=== PATIENT | female | born 1970 | race Caucasian/White ===

== ENCOUNTER → 2018-01-29 08:24 | Outpatient (CLI) | payer BC, SELFPAY ==
--- NOTE | 2018-01-29 08:28 | MM_ITS ---
MM Dig screening mamm BI w/CAD CAD Screening COMPARISON: Digital left mammogram 02/13/2017 and digital mammograms with CAD 07/17/2016 INDICATION: There is no personal or family history of breast cancer TECHNIQUE: Standard CC and MLO images were obtained. R2 CAD reviewed. FINDINGS: Moderate diffuse fibroglandular densities are seen throughout both breast and the findings are bilateral and symmetrical. There is no suspicious lesion and there are no suspicious microcalcifications. IMPRESSION: Moderate diffuse breast density with no suspicious lesion seen BI-RADS Category: 1 Negative RECOMMENDED FOLLOW-UP: 1YR - 1 YEAR FOLLOW-UP (A letter has been sent to the patient regarding results of the study.)
== END ==
PROVIDERS: PCP Family Medicine; Visit Provider Nurse Practitioner Obstetrics & Gynecology
DX: Z12.31 Encounter for screening mammogram for malignant neoplasm of breast (principal)
CPT/HCPCS: 77067

== ENCOUNTER → 2018-02-05 10:40 | Outpatient (CLI) | payer BC, SELFPAY ==
[2018-02-05 11:48] LABS: Free T4 (Free Thyroxine) 1.37 ng/dl (0.76-1.46); Thyroid Stimulating Hormone 5.59 uIU/ml (0.358-3.740)
== END ==
PROVIDERS: Visit Provider Otolaryngology
DX: E03.9 Hypothyroidism, unspecified (principal)
CPT/HCPCS: 36415; 84439; 84443

== ENCOUNTER → 2019-02-05 14:04 | Outpatient (CLI) | payer BC, SELFPAY ==
[2019-02-05 14:58] LABS: Free T4 (Free Thyroxine) 1.47 ng/dl (0.76-1.46); Thyroid Stimulating Hormone 1.47 uIU/ml (0.358-3.740)
== END ==
PROVIDERS: Visit Provider Otolaryngology
DX: E03.9 Hypothyroidism, unspecified (principal)
CPT/HCPCS: 36415; 84439; 84443

== ENCOUNTER → 2019-03-28 08:27 | Outpatient (CLI) | payer BC, SELFPAY ==
[2019-03-28 08:36] LABS: Basophils # 0.1 K/mm3 (0-0.2); Basophils % 0.8 % (0.1-2.0); Eosinophils # 0.2 K/mm3 (0.0-0.4); Eosinophils % 2.2 % (0.1-12.0); Lymphocytes # 2.4 K/mm3 (0.7-4.5); Lymphocytes % 34.4 % (10-50); Mean Corpuscular HGB Conc 32.6 g/dL (31.8-35.4); Mean Corpuscular Hemoglobin 29.3 pg (27.0-31.2); Mean Corpuscular Volume 89.8 fl (81-99); Mean Platelet Volume 6.8 fl (7.4-10.4); Monocytes # 0.3 K/mm3 (0.1-1.0); Monocytes % 4.5 % (1.7-9.3); Neutrophils # 4.1 K/mm3 (1.8-7.8); Neutrophils % 58.1 % (37.0-80.0); Platelet Count 435 K/mm3 (142-424); Red Blood Count 5.12 M/mm3 (4.20-5.40); Red Cell Distribution Width 13.1 % (11.5-17.5); White Blood Count 7.1 K/mm3 (4.8-10.8)
[2019-03-28 11:31] LABS: Alanine Aminotransferase 39 U/L (12-78); Albumin Level 3.2 gm/dL (3.4-5.0); Alkaline Phosphatase 70 U/L (46-116); Anion Gap 11.5 mEq/L (5-15); Aspartate Amino Transferase 32 U/L (15-37); Bilirubin,Total 0.4 mg/dL (0.2-1.0); Blood Urea Nitrogen 12 mg/dL (7-18); Calcium 8.8 mg/dL (8.5-10.1); Carbon Dioxide 29 mmol/L (21.0-32.0); Chloride 102 mmol/L (98-107); Chol/HDL Ratio 3.2 (1-3.5); Cholesterol 121 mg/dL (140-200); Creatinine,Serum 0.56 mg/dL (0.55-1.02); Estimated Glomerular Filt Rate 116 ml/min (>60); GFR (African American) 140 ML/MIN (>60); Globulin 3.3 gm/dl (1.3-3.2); Glucose 78 mg/dL (74-106); HDL Cholesterol 38 mg/dL (29-89); LDL Cholesterol 72 mg/dL (0-130); Potassium 4.5 mmoL/L (3.5-5.1); Sodium 138 mmol/L (136-145); Total Protein,Serum 6.5 gm/dL (6.4-8.2); Triglycerides 54 mg/dL (30-200); VLDL Cholesterol 11 mg/dL (0-40)
== END ==
PROVIDERS: Visit Provider Nurse Practitioner Obstetrics & Gynecology
DX: Z01.419 Encounter for gynecological examination (general) (routine) without abnormal findings (principal)
CPT/HCPCS: 36415; 80053; 80061; 85025

== ENCOUNTER → 2020-01-27 11:37 | Outpatient (CLI) | payer BC, SELFPAY ==
[2020-01-27 14:50] LABS: Free T4 (Free Thyroxine) 1.73 ng/dl (0.78-2.19)
[2020-01-27 15:04] LABS: Thyroid Stimulating Hormone 0.02 uIU/mL (0.465-4.68)
== END ==
PROVIDERS: Visit Provider Otolaryngology
DX: E03.9 Hypothyroidism, unspecified (principal)
CPT/HCPCS: 36415; 84439; 84443

== ENCOUNTER → 2020-07-21 08:55 | Outpatient (CLI) | payer BC, SELFPAY ==
--- NOTE | 2020-07-21 08:59 | MM_ITS ---
PROCEDURE: MM DIG SCREENING MAMM BI W/CAD Digital Breast Tomosynthesis Included CLINICAL INDICATION: screening xmg There is no personal or family history of breast cancer. The patient currently is on control pills. COMPARISON: MG DMSB DIG MAMM-SCREEN KADY from 07/17/2016 MG DMDXUAVL DIG MAMM-DX UNI A/VWS-LT W/CAD from 02/13/2017 MG SCBI MM Dig screening mamm BI w/CAD from 01/29/2018 TECHNIQUE: Standard CC and MLO images and 3D Tomosynthesis was obtained. R2 CAD reviewed. FINDINGS: Moderate diffuse fibroglandular densities are seen throughout both breasts. There is no new or suspicious lesion in either breast and no suspicious microcalcifications. IMPRESSION: Moderate diffuse breast density with no suspicious lesions seen BI-RAD Category: 1 Negative FOLLOW-UP: 1YR 1 Year Follow-up (A letter has been sent to the patient regarding results of the study.) Dictated by: Dr. Carlos A Parks MD 07/23/2020 09:52 Dr. Carlos A Parks MD in [place] 07/23/2020 09:52
== END ==
PROVIDERS: PCP Family Medicine; Visit Provider Nurse Practitioner Obstetrics & Gynecology
DX: Z12.31 Encounter for screening mammogram for malignant neoplasm of breast (principal)
CPT/HCPCS: 77063; 77067

== ENCOUNTER → 2021-01-20 09:59 | Outpatient (CLI) | payer BC, SELFPAY ==
[2021-01-20 11:35] LABS: Free T4 (Free Thyroxine) 1.69 ng/dl (0.78-2.19)
[2021-01-20 11:50] LABS: Thyroid Stimulating Hormone < 0.02 uIU/mL (0.465-4.68)
== END ==
PROVIDERS: Visit Provider Otolaryngology
DX: E03.9 Hypothyroidism, unspecified (principal)
CPT/HCPCS: 36415; 84439; 84443

== ENCOUNTER → 2021-01-27 13:49 | Outpatient (CLI) | payer BC, SELFPAY ==
--- NOTE | 2021-01-27 13:53 | XR_ITS ---
PROCEDURE: XR CHEST 2V CLINICAL HISTORY: cough COMPARISON: No exams were available for comparison FINDINGS: The cardiomediastinal silhouette and pulmonary vascularity are within normal limits. The lungs are clear without infiltrates, suspicious nodules, or pleural effusions. There is a calcified granuloma in the right lower lobe. Lower thoracic and lumbar scoliosis convex left. IMPRESSION: No acute findings. Dictated by: Gus Horta MD 01/27/2021 14:08 Gus Horta MD in [place] 01/27/2021 14:08
== END ==
PROVIDERS: PCP Family Medicine; Visit Provider Otolaryngology
DX: R05 Cough (principal)
CPT/HCPCS: 71046

== ENCOUNTER → 2021-05-15 07:34 | Outpatient (CLI) | payer BC, SELFPAY ==
[2021-05-15 09:01] LABS: Free T4 (Free Thyroxine) 1.46 ng/dl (0.78-2.19)
[2021-05-15 09:16] LABS: Thyroid Stimulating Hormone 1.39 uIU/mL (0.465-4.68)
== END ==
PROVIDERS: PCP Otolaryngology; Visit Provider Otolaryngology
DX: R05.9 Cough, unspecified (principal)
CPT/HCPCS: 36415; 84439; 84443

== ENCOUNTER → 2021-07-24 10:08 | Outpatient (CLI) | payer BC, SELFPAY ==
--- NOTE | 2021-07-24 10:09 | MM_ITS ---
PROCEDURE INFORMATION: Exam: MG Bilateral Screening 3D Mammography Exam date and time: 07/24/2021 10:09 AM Age: 50 years old Clinical indication: Encounter for screening mammogram for malignant neoplasm of breast TECHNIQUE: Imaging protocol: Bilateral screening tomosynthesis and 2D mammography including computer-aided detection (CAD) when performed. COMPARISON: 1. MG MM DIG SCREENING MAMM BI W/CAD 07/21/2020 9:03 AM 2. MG SCBI MM Dig screening mamm BI w/CAD 01/29/2018 8:43 AM FINDINGS: MAMMOGRAPHY: Breast composition: The breast tissue is heterogeneously dense, which may obscure small masses. Mass: None. Architectural distortion: None. Calcifications: No suspicious calcifications. Asymmetric density: None. Skin thickening: None. Axillary adenopathy: None. IMPRESSION: No mammographic evidence of malignancy. Annual screening is recommended unless otherwise clinically indicated. ASSESSMENT: BI-RADS Category 1: Negative
== END ==
PROVIDERS: PCP Nurse Practitioner Obstetrics & Gynecology; Visit Provider Nurse Practitioner Obstetrics & Gynecology
DX: Z12.31 Encounter for screening mammogram for malignant neoplasm of breast (principal)
CPT/HCPCS: 77063; 77067

== ENCOUNTER → 2022-01-15 10:51 | Outpatient (CLI) | payer BC, SELFPAY ==
[2022-01-15 12:07] LABS: Free T4 (Free Thyroxine) 1.69 ng/dl (0.78-2.19)
[2022-01-15 12:23] LABS: Thyroid Stimulating Hormone 0.59 uIU/mL (0.465-4.68)
== END ==
PROVIDERS: PCP Family Medicine; Visit Provider Otolaryngology
DX: E03.9 Hypothyroidism, unspecified (principal)
CPT/HCPCS: 36415; 84439; 84443

== ENCOUNTER → 2022-08-09 15:38 | Outpatient (CLI) | payer BC, SELFPAY ==
--- NOTE | 2022-08-09 15:41 | MM_ITS ---
PROCEDURE INFORMATION: Exam: MG Bilateral Screening 3D Mammography Exam date and time: 08/09/2022 3:37 PM Age: 51 years old Clinical indication: Screening examination TECHNIQUE: Imaging protocol: Bilateral Screening tomosynthesis and 2D mammography including computer-aided detection (CAD) when performed. COMPARISON: 1. MG MM DIG SCREENING MAMM BI W/CAD 07/24/2021 10:10 AM 2. MG MM DIG SCREENING MAMM BI W/CAD 07/21/2020 9:03 AM FINDINGS: MAMMOGRAPHY: Breast composition: There are scattered areas of fibroglandular density. Mass: None. Architectural distortion: None. Calcifications: No suspicious calcifications. Asymmetric density: None. Skin thickening: None. Axillary adenopathy: None. IMPRESSION: No mammographic evidence of malignancy. Annual screening is recommended unless otherwise clinically indicated. ASSESSMENT: BI-RADS Category 1: Negative
== END ==
PROVIDERS: PCP Family Medicine; Visit Provider Nurse Practitioner Obstetrics & Gynecology
DX: Z12.31 Encounter for screening mammogram for malignant neoplasm of breast (principal)
CPT/HCPCS: 77063; 77067

== ENCOUNTER → 2022-12-25 11:44 | Outpatient (CLI) | payer BC, SELFPAY ==
[2022-12-25 12:47] LABS: Free T4 (Free Thyroxine) 1.36 ng/dl (0.78-2.19)
[2022-12-25 13:01] LABS: Thyroid Stimulating Hormone 1.75 uIU/mL (0.465-4.68)
== END ==
PROVIDERS: PCP Family Medicine; Visit Provider Otolaryngology
DX: E03.9 Hypothyroidism, unspecified (principal)
CPT/HCPCS: 36415; 84439; 84443

== ENCOUNTER 2023-05-03 10:08 | Day surgery (SDC) | payer BC, SELFPAY ==
[2023-05-03] VITALS (7 sets, daily range): BP systolic 85–136; BP diastolic 50–94; PULSE 68–109; RESP 14–18; TEMP 36–36.9; O2SAT 95–99; BMI 25.7
--- NOTE | 2023-05-03 10:54 | EXP.ANES.CKL ---
[facility] Disclaimer: The information contained in this section may have been updated after the patient was seen, as this information can be updated by other users. Medical History (Updated 05/03/23 @ 10:19 by Huan Santizo RN) Allergic rhinitis Deaf Hypothyroidism Surgical History History of cholecystectomy Family History Father Cancer Family/Other Diabetes Grandmother Cancer Social History (Updated 05/03/23 @ 10:26 by Huan Santizo RN) Smoking Status: Never smoker alcohol intake: never substance use type: denies use current occupational status: employed Travel in the last 8 weeks: None housing: house [facility] Anesthesia Checklist Patient Identification Patient Identification: Arm Band and Family Structural Data Admitted From: Home Planned Operative Procedure/s: Colonoscopy Consent for Planned Operative Procedure(s) Verified: Yes Verified Documents: Surgical Consent and History and Physical NPO Status Verified Time NPO: 00:00 Additional verifications Anesthesia Reactions: No Airway Assessment Mallampati Score:: Class II C-Spine Mobility Assessed: Yes TMJ Mobility Assessed: Yes Dentition: Good Dentition Neurological Assessment Level of Consciousness: Awake and Alert Anesthesia Plan Anesthesia Risk discussed: Yes Anesthesia Plan: Verified ASA Class: II Anesthesia Type: MAC Preoperative Comments Pre-Operative Comments: Pt and family member present are both deaf and communicate through sign language. Preoperative anesthesia assessment questions asked through writing. Pt and family member able to communicate all answers appropriately.
[2023-05-03 11:13] LABS: Urine Pregnancy, HCG Qual. Negative (Negative)
--- NOTE | 2023-05-03 11:54 | P.PCN_ITS ---
Procedure: Date: 05/03/23 Patient Date of :: 1970 Procedure Performed:: Total colonoscopy to terminal ileum Indications:: Patient is a 52-year-old female referred by Dr. Louie Ordonez for initial screening colonoscopy. Performing Provider:: Branden Dickson MD Referring Provider:: Louie Wilson MD Sedation:: MAC sedation Procedure:: Patient history was obtained and appropriate physical examination was performed. Patient's medications and allergies were reviewed. Informed consent was obtained after explaining the benefits, alternatives, and risks of the procedure including, but not limited to, bleeding, perforation, missed lesions, and adverse reaction to anesthesia medications. Patient was transported to endoscopy procedure room. Patient was connected to monitoring devices. Throughout the procedure the patient's blood pressure, pulse, and oxygen saturations were monitored continuously. Patient identification and planned procedure were verified by the staff. Patient was positioned in lateral decubitus position. Digital anorectal exam was performed. Variable stiffness Olympus colonoscope was inserted and advanced under direct visualization to the cecum. Adequacy of the colonic prep aration was noted. The colonoscope was advanced a short distance into the terminal ileum. The colonoscope was then slowly withdrawn while carefully examining the color, texture, anatomy, and integrity of the mucosoa circumferentially. Within the rectum retroflexion was performed. Colonoscope was then withdrawn. . There was some tortuosity and lack of relaxation of the colon with some colonic atony. There was some appreciable gaseous liquid in the right colon. However, the colonoscope was advanced to the terminal ileum which appeared grossly normal. Large amount of trans colonoscopic irrigation and suctioning was performed. There were no obvious polyps.. . Findings:: No obvious polyps Gaseous enteric liquid right colon which somewhat obscured visualization Recommendations:: Due to the fact that this is the patient's initial screening colonoscopy and due to somewhat suboptimal visualization I would recommend repeat colonoscopy 5 years Complications:: None immediately apparent Estimated blood obtained (mL): 0 Colonoscopy Component Colonoscopy Component Was a colonoscopy performed during today's procedure?: Yes Recommended follow up colonoscopy of at least 10 years?: No If no, follow up colonoscopy recommended in ___ years?: 5 Reason for not recommending >/= 10 yr follow-up interval?: See above
--- NOTE | 2023-05-03 14:13 | P.PNANES_ITS ---
[facility] Anesthesia Record Part I Anesthesia Record I Intake, IV Amount: 450 Hydration: Adequate Estimated blood loss (mL): 0 Urine output (mL): 0 Blood Products used (#): none Blood Pressure: 85/50 SaO2: 95 Pulse Rate: 68 Airway Patency: Patent Respiratory Rate: 14 Temperature: 96.8 F Patient is:: Awake, Drowsy and Stable Stable to PACU at:: 12:01
== END 2023-05-03 12:40 | disposition home or self-care (01) ==
PROVIDERS: PCP Family Medicine; Visit Provider Surgery
PROC: 0DJD8ZZ Inspection of Lower Intestinal Tract, Via Natural or Artificial Opening Endoscopic (ICD-10-PCS; CPT 45378; principal; 2023-05-03 11:00)
DX: Z12.11 Encounter for screening for malignant neoplasm of colon (principal); K56.2 Volvulus
CPT/HCPCS: 45378; 81025

== ENCOUNTER 2023-09-04 15:16 | Outpatient (CLI) | payer BC, SELFPAY ==
--- NOTE | 2023-09-04 15:17 | MM_ITS ---
PROCEDURE INFORMATION: Exam: MG Bilateral Screening 3D Mammography Exam date and time: 09/04/2023 3:08 PM Age: 52 years old Clinical indication: Screening examination TECHNIQUE: Imaging protocol: Bilateral Screening tomosynthesis and 2D mammography including computer-aided detection (CAD) when performed. COMPARISON: 1. MG MM DIG SCREENING MAMM BI W/CAD 08/09/2022 3:37 PM 2. MG MM DIG SCREENING MAMM BI W/CAD 07/24/2021 10:10 AM FINDINGS: MAMMOGRAPHY: Breast composition: There are scattered areas of fibroglandular density. Mass: None. Architectural distortion: None. Calcifications: No suspicious calcifications. Asymmetric density: None. Skin thickening: None. Axillary adenopathy: None. IMPRESSION: No mammographic evidence of malignancy. Annual screening is recommended unless otherwise clinically indicated. ASSESSMENT: BI-RADS Category 1: Negative
== END 2023-09-04 23:59 ==
LOC: RAD 15:17
PROVIDERS: PCP Family Medicine; Visit Provider Nurse Practitioner Obstetrics & Gynecology
DX: Z12.31 Encounter for screening mammogram for malignant neoplasm of breast (principal)
CPT/HCPCS: 77063; 77067

== ENCOUNTER 2023-12-24 10:34 | Outpatient (CLI) | payer BC, SELFPAY ==
[2023-12-24 12:14] LABS: Free T4 (Free Thyroxine) 1.27 ng/dl (0.78-2.19)
== END 2023-12-24 23:59 | disposition home or self-care (01) ==
LOC: LAB 10:35
PROVIDERS: PCP Otolaryngology; Visit Provider Otolaryngology
DX: E03.9 Hypothyroidism, unspecified (principal)
CPT/HCPCS: 36415; 84439; 84443

== ENCOUNTER 2024-04-23 12:13 | Outpatient (CLI) | payer BC, SELFPAY ==
--- NOTE | 2024-04-23 12:26 | US_ITS ---
FINAL REPORT TECHNIQUE: Real-time grayscale and color ultrasound of the thyroid was performed. CLINICAL HISTORY: hypothyroidism COMPARISON: None FINDINGS: There is a minimal amount of residual thyroid tissue bilaterally measuring 6 x 3 x 5 mm on the right and 6 x 2 x 5 mm on the left. The isthmus measures 1 mm. IMPRESSION: Minimal amount of residual thyroid tissue, likely related to prior ablation. Reviewed, Interpreted and Dictated by August Marin MD Transcribed by Manuela Ordonez Authenticated and [facility]
[2024-04-23 14:18] LABS: Free T4 (Free Thyroxine) 1.29 ng/dl (0.78-2.19)
== END 2024-04-23 23:59 | disposition home or self-care (01) ==
PROVIDERS: PCP Family Medicine; Visit Provider Nurse Practitioner
DX: E03.9 Hypothyroidism, unspecified (principal)
CPT/HCPCS: 36415; 76536; 84439; 84443

== ENCOUNTER 2024-11-23 09:17 | Outpatient (CLI) | payer BC, SELFPAY ==
--- NOTE | 2024-11-23 09:30 | US_ITS ---
FINAL REPORT TECHNIQUE: Sonographic images of the thyroid gland were obtained in the longitudinal and transverse planes. CLINICAL HISTORY: hypothyroidism COMPARISON: 04/23/2024 FINDINGS: THYROID ULTRASOUND: The patient has undergone a prior thyroid ablation. The right lobe measures 1.5 cm. The right lobe is homogeneous. There are no cystic or solid nodules. The left lobe measures 1.4 cm. The left lobe is homogeneous. There are no cystic or solid nodules. The isthmus measures 1 mm. This is normal. IMPRESSION: Prior thyroid ablation, the residual probable thyroid tissue is extremely diminutive, not significantly changed from the prior post ablation thyroid scan of 04/23/2024. No new masses are noted in the surgical bed. Reviewed, Interpreted and Dictated by Vijaya Szymanski MD Transcribed by January Aguilar Authenticated and [facility]
== END 2024-11-23 23:59 | disposition home or self-care (01) ==
LOC: RAD 09:18
PROVIDERS: PCP Family Medicine; Visit Provider Nurse Practitioner
DX: E03.9 Hypothyroidism, unspecified (principal)
CPT/HCPCS: 76536

== ENCOUNTER 2024-11-24 15:27 | Outpatient (CLI) | payer BC, SELFPAY ==
[2024-11-24 17:23] LABS: Free T4 (Free Thyroxine) 1.29 ng/dl (0.78-2.19)
[2024-11-24 17:44] LABS: Thyroid Stimulating Hormone 0.55 uIU/mL (0.465-4.68)
== END 2024-11-24 23:59 | disposition home or self-care (01) ==
LOC: LAB 15:28
PROVIDERS: PCP Family Medicine; Visit Provider Nurse Practitioner
DX: E03.9 Hypothyroidism, unspecified (principal)
CPT/HCPCS: 36415; 84439; 84443

== ENCOUNTER 2024-12-24 08:20 | Outpatient (CLI) | payer BC, SELFPAY ==
--- NOTE | 2024-12-24 08:30 | MM_ITS ---
PROCEDURE INFORMATION: Exam: MG Bilateral Screening 3D Mammography Exam date and time: 12/24/2024 8:34 AM Age: 54 years old Clinical indication: Screening exam. TECHNIQUE: Imaging protocol: Bilateral Screening tomosynthesis and 2D mammography including computer-aided detection (CAD) when performed. COMPARISON: 1. MG MM DIG SCREENING MAMM BI W/CAD 09/04/2023 3:08 PM 2. MG MM DIG SCREENING MAMM BI W/CAD 08/09/2022 3:37 PM FINDINGS: MAMMOGRAPHY: Breast composition: There are scattered areas of fibroglandular density. Mass: No suspicious masses. Architectural distortion: None. Calcifications: No suspicious calcifications. Asymmetric density: None. Skin thickening: None. Axillary adenopathy: None. IMPRESSION: No mammographic evidence of malignancy. Annual screening is recommended unless otherwise clinically indicated. ASSESSMENT: BI-RADS Category 1: Negative.
== END 2024-12-24 23:59 | disposition home or self-care (01) ==
LOC: RAD 08:21
PROVIDERS: PCP Nurse Practitioner Obstetrics & Gynecology; Visit Provider Nurse Practitioner Obstetrics & Gynecology
DX: Z12.31 Encounter for screening mammogram for malignant neoplasm of breast (principal); R92.323 Mammographic fibroglandular density, bilateral breasts
CPT/HCPCS: 77063; 77067

== ENCOUNTER 2025-05-05 07:36 | Day surgery (SDC) | payer BC, SELFPAY ==
--- NOTE | 2025-04-23 11:43 | SUR.PREOP ---
PT IS HEARING IMPAIRED. WILL HAVE A SEWING MACHINES SALESPERSON WITH HER DAY OF PROCEDURE PER [facility] IN [facility]
--- NOTE | 2025-04-28 16:24 | P.HP_ITS ---
History of Present Illness *Admission Date: 05/05/25 *History of present illness: Mrs. Sarah is a 54-year-old female who is here for diagnostic EGD. She has had dysphagia/swallowing difficulty starting several months ago. She does report heartburn and reflux. She has had a chronic cough intermittently for several months. She did see ENT and was placed on omeprazole. She continues to have some symptoms. She did have an EGD about 20 years ago. Occasionally she will belch or burp up a little bit of food with relief of symptoms. She did have a colonoscopy in 2022 (Branden Dickson MD) which was normal. The examination is deemed medically necessary for diagnostic EGD. The patient has been seen, interviewed and examined prior to the procedure by both myself and the anesthesia provider. [facility] Disclaimer: The information contained in this section may have been updated after the patient was seen, as this information can be updated by other users. Medical History Difficulty swallowing GERD (gastroesophageal reflux disease) Otalgia, left ear Deaf Allergic rhinitis Hypothyroidism Surgical History History of tonsillectomy History of ear surgery left ear History of cholecystectomy Family History Father Cancer Family/Other Diabetes Grandmother Cancer Social History Smoking Status: Never smoker alcohol intake: never substance use type: denies use current occupational status: employed Travel in the last 8 weeks?: None housing: house Have you lived/traveled outside US in past 30 days?: No Contact w/someone who lives/traveled outside US past 30 days?: No Exposure to someone with infectious disease in past 14 days?: No Do you have a fever (greater than 100.4 F or 38 C)?: No Have you tested positive for COVID-19?: No Exposed to someone with COVID-19 in past 14 days?: No Do you have a sore throat?: No Do you have a cough?: No Do you have any weakness?: No Do you have any diarrhea?: No Are you experiencing any unusual bleeding?: No Do you have any muscle aches/pain?: No Do you have any abdominal pain?: No Are you experiencing loss of taste or smell?: No Other Medical History Have you received the Flu Vaccine for this season: No Have you received the Pneumonia Vaccine: No Review of Systems Review of Systems Review of systems (narrative): Negative *Cardiovascular Comments: Negative *Gastrointestinal Comments: Negative *Genitourinary Comments: Negative *Musculoskeletal Comments: Negative *Neurologic Comments: Negative Meds Home Medications and Allergies Home Medications ?Medication ?Instructions ?Recorded ?Confirmed ?Type lisinopril 10 1 tab PO DAILY htn 30 days # #30 02/10/18 05/05/25 History mg-hydrochlorothiazide 12.5 mg tablet fluticasone propionate 50 1 spray intranasal DAILY all ergies 12/08/24 05/05/25 Rx mcg/actuation nasal #11.1 mL spray,suspension (Flonase Allergy Relief) levothyroxine 150 mcg tablet 150 mcg PO DAILY #30 tabs 12/08/24 05/05/25 Rx cetirizine 10 mg capsule (Zyrtec) 10 mg PO DAILY PRN a llergy 02/25/25 05/05/25 R x symptoms #90 caps omeprazole 20 mg capsule,delayed 20 mg PO DAILY #120 c aps 04/20/25 05/05/25 Rx release levonorgestrel-ethinyl estradiol 1 tab PO DAILY 05/05/25 History 0.1 mg-20 mcg tablet (Falmina (28)) New Prescriptions to Start Prescriptions: Allergies Allergy/AdvReac Type Severity Reaction Status Date / Time Influenza Virus Vaccines Allergy Severe Unknown Verified 03/29/25 15:30 allergy reaction Exam *Routine HEENT Exam Head: Present normocephalic Eye: Present EOMI and PERRL ENT: Present mucous membranes moist *Routine Neck Exam Neck: Present supple *Routine Respiratory Exam Respiratory: Present CTA bilaterally *Routine Cardiovascular Exam Cardiovascular: Present RRR *Routine Abdominal Exam Abdominal: Present soft and normoactive bowel sounds; Absent tenderness *Routine Rectal Exam Rectal:: deferred *Routine Genitalia Exam Genitalia:: deferred *Routine Extremities Exam Extremities: Absent cyanosis, clubbing or edema *Routine Skin Exam Skin: Present warm; Absent rash *Routine Neurological Exam Neurological: Present alert and oriented X3 Assessment and Plan *Assessment and plan (1) Difficulty swallowing: Status: Acute Category: Medical Code(s): R13.10 - Dysphagia, unspecified (2) GERD (gastroesophageal reflux disease): Status: Acute Qualifiers: Esophagitis bleeding: without hemorrhage Esophagitis presence: with esophagitis Qualified Code(s): K21.00 - Gastro-esophageal reflux disease with esophagitis, without bleeding Category: Medical Code(s): K21.9 - Gastro-esophageal reflux disease without esophagitis (3) Chronic cough: Status: Acute Category: Medical Code(s): R05.3 - Chronic cough Plan A/P: 1. Difficulty swallowing/dysphagia with chronic GERD and some intermittent chronic cough is the preprocedural diagnosis. The patient will be anesthetized/sedated using MAC sedation. The patient has been seen and examined. Cardiac and lung assessment prior to the examination is stable. Proceed with planned diagnostic EGD.
--- NOTE | 2025-05-05 07:01 | HMH.PROCNOTE ---
[facility] Procedure Note Date: 05/05/25 Time: 09:14 Procedure Note:: Upper Endoscopy Procedure Report: Esophagogastroduodenoscopy with cold biopsies and TTS balloon dilation Endoscopost: Bean Pino II, MD Referring Physician: Selene Bhandari M.D. Date of Procedure: May 05, 2025 Equipment: Olympus GIF-1100 standard upper endoscope Sedation: MAC sedation Indications: Mrs. Sarah is a 54-year-old female who is here for diagnostic EGD. She has had dysphagia/swallowing difficulty starting several months ago. This has happened a few times where she feels food will hanging up. She will drink water and this will pass after a few minutes. She does report heartburn and reflux. She has had a chronic cough intermittently for several months. She did see ENT and was placed on omeprazole. She continues to have some symptoms. She did have an EGD about 20 years ago. Occasionally she will belch or burp up a little bit of food with relief of symptoms. The patient does report some belching and gassiness. She has some burning in the epigastrium. She reports no abdominal pain, bloating or regurgitation. She does report regular to loose bowel movements. She did have a colonoscopy in 2022 (Branden Dickson MD) which was normal. The examination is deemed medically necessary for diagnostic EGD. Procedure: Prior to the procedure, a history and physical exam was performed, and patient's medications and allergies were reviewed. The risks, benefits and alternatives of the sedation and procedure were discussed with the patient. All questions were answered and informed consent was obtained. The patient was brought to the procedure room. Patient identification and proposed procedure were verified by the physician and the nurse. The patient was placed in a left lateral decubitus position and the scope was passed under direct vision. Throughout the procedure, the patient's blood pressure, pulse, and oxygen saturations were monitored continuously. The upper GI endoscopy was accomplished without difficulty. The patient tolerated the procedure well. Findings: The scope was passed directly into the upper esophagus and advanced to the third portion of the duodenum. The post bulbar duodenum was normal but within the duodenal bulb and first portion there was some scalloping of the conniventes which is suggestive of celiac disease. Cold biopsies were taken x 4 of the duodenal bulb and first portion to rule out celiac disease. 2 cold biopsies were taken from the second portion of the duodenum for the disaccharidase assay. The scope was withdrawn through a normal pylorus into the stomach. There was bile reflux with mild linear reactive gastropathy of the antrum. Cold biopsies were taken from the antrum. The body and fundus of the stomach were grossly normal with normal mucosa. Upon retroflexion there was no hiatal hernia. The scope was then withdrawn into the esophagus. There was no evidence of reflux esophagitis or Bee's. There was no corrugation, furrowing, Schatzki's ring or strictures. There were tertiary contractions and evidence of mild esophageal dysmotility. The entire esophagus was dilated to 60 Nepali/20 mm with a TTS hydrostatic balloon. There was minimal resistance. The remainder of the esophageal mucosa was normal. Impression: 1. Nonerosive GERD with mild esophageal dysmotility 2. Bile reflux with mild linear reactive gastropathy of antrum 3. Scalloping of the duodenal conniventes in bulb and first portion of duodenum?rule out celiac disease Plan: I will discuss the findings with the patient and family. I will check the biopsies and disaccharidase assay. I do suspect the esophageal dysmotility is resulting in the intermittent dysphagia. We will discuss treatment options. I will obtain celiac serologies.
[2025-05-05 08:27] VITALS: BP 154/80; PULSE 97; RESP 20; TEMP 36.7; O2SAT 98; BMI 25.1
[2025-05-05] MEDS: LACTATED RINGERS 1000ML 1,000 ML 50 ML IV (08:39)
--- NOTE | 2025-05-05 08:55 | EXP.ANES.CKL ---
[facility] Disclaimer: The information contained in this section may have been updated after the patient was seen, as this information can be updated by other users. Medical History Difficulty swallowing GERD (gastroesophageal reflux disease) Otalgia, left ear Deaf Allergic rhinitis Hypothyroidism Surgical History History of tonsillectomy History of ear surgery left ear History of cholecystectomy Family History Father Cancer Family/Other Diabetes Grandmother Cancer Social History Smoking Status: Never smoker alcohol intake: never substance use type: denies use current occupational status: employed Travel in the last 8 weeks?: None housing: house Have you lived/traveled outside US in past 30 days?: No Contact w/someone who lives/traveled outside US past 30 days?: No Exposure to someone with infectious disease in past 14 days?: No Do you have a fever (greater than 100.4 F or 38 C)?: No Have you tested positive for COVID-19?: No Exposed to someone with COVID-19 in past 14 days?: No Do you have a sore throat?: No Do you have a cough?: No Do you have any weakness?: No Do you have any diarrhea?: No Are you experiencing any unusual bleeding?: No Do you have any muscle aches/pain?: No Do you have any abdominal pain?: No Are you experiencing loss of taste or smell?: No [facility] Anesthesia Checklist Patient Identification Patient Identification: Arm Band and Verbal (Name & ) Structural Data Admitted From: Home Planned Operative Procedure/s: EGD Verified Documents: Surgical Consent NPO Status Verified Time NPO: 00:00 Chart Verification Results Verified: None Additional verifications Anesthesia Reactions: No Airway Assessment Mallampati Score:: Class II C-Spine Mobility Assessed: Yes TMJ Mobility Assessed: Yes Dentition: Good Dentition Neurological Assessment Level of Consciousness: Awake, Alert and Appropriate Hx Seizures: No Numbness or tingling in extremities: No Anesthesia Plan Anesthesia Risk discussed: Yes Anesthesia Plan: Verified ASA Class: II Anesthesia Type: MAC
[2025-05-05 09:12] VITALS: BP 94/64; PULSE 86; RESP 16; TEMP 36.6; O2SAT 98
[2025-05-05 09:22] VITALS: BP 111/74; PULSE 81; RESP 17; TEMP 36.6; O2SAT 100
[2025-05-05 09:32] VITALS: BP 128/68; PULSE 80; RESP 18; TEMP 36.6; O2SAT 99
[2025-05-05 09:42] VITALS: BP 105/90; PULSE 86; RESP 18; TEMP 36.6; O2SAT 99
[2025-05-06 12:12] LABS: Deamidated Gliadin Abs, IgA >150 units (0-19); Deamidated Gliadin Abs, IgG 55 units (0-19)
[2025-05-10 16:15] LABS: Interpretation Notes (.); Lactase 0.9 (>/= 14.0); Maltase 18.34 (>/= 110.0); Palatinase 1.8 (>/= 8.5); Reference Notes (.); Sucrase 2.52 (>/= 25.0)
== END 2025-05-05 10:24 | disposition home or self-care (01) ==
PROVIDERS: PCP Family Medicine; Visit Provider Internal Medicine Gastroenterology
PROC: 0DJ08ZZ Inspection of Upper Intestinal Tract, Via Natural or Artificial Opening Endoscopic (ICD-10-PCS; CPT 43239; principal; 2025-05-05 09:00)
DX: K21.9 Gastro-esophageal reflux disease without esophagitis (principal); K29.50 Unspecified chronic gastritis without bleeding; K31.89 Other diseases of stomach and duodenum; K22.4 Dyskinesia of esophagus; E03.9 Hypothyroidism, unspecified; D72.820 Lymphocytosis (symptomatic)
CPT/HCPCS: 43239; 43249; 36415; 82657; 86231; 86258; 86364; C1726; J2003; J2704; J7120

== ENCOUNTER 2025-05-31 14:13 | Outpatient (CLI) | payer BC, SELFPAY ==
--- NOTE | 2025-05-31 14:15 | US_ITS ---
FINAL REPORT CLINICAL HISTORY: 6 month f/u COMPARISON: 11/23/2024 FINDINGS: Limited sonographic images of the thyroid was obtained. The thyroid is severely atrophic. Right lobe of the thyroid measures 0.5 mL. Left lobe of the thyroid measures 0.1 mm. The parenchyma is heterogeneous. No mass is identified. IMPRESSION: Severely atrophic thyroid which may be related to chronic thyroiditis or sequela of prior ablation procedure. Reviewed, Interpreted and Dictated by Bhupinder Duarte MD Transcribed by Jody Roblero Authenticated and [facility]
--- OUTSIDE RECORDS SUMMARY | 2025-05-31 14:16 | XMS_ITS | Clinical Summary ---
Author Organization [facility] yste Address [address] [place] [address] Care Team Providers Care Security Messenger Name Role Phone Unavailable Primary Care Provider Unavailabl e Social History Tobacco Use Types Packs/Day Years Used Date Smoking Tobacco: Never Assessed Abuse Screen Answer Date Recorded Unsafe at Home or Work/School Not on file Feels Threatened by Someone? Not on file 03/2023 Does Anyone Keep You from Co ntacting Others or Doint Things Outside the Home? Not on file 04/29/2023 Physical Sign of Abuse Present Not on file 1 Housing Stability Answer Date Recorded Current Living Arrangements Not on file 03/2023 Potentially Unsafe Housing Conditions Not on jg e 04/29/2023 Family and Community Support Answer Mason e Recorded Help with Day-to-Day Activities Not on file 04/29/2023 Lonely or Isolated Not on file 04/29/2023 Employment Answer Date Recorded Do you want help finding or keeping work or a dulce b? Not on file 04/29/2023 Disabilities Answer Date Recorded Concentrating, Remembering, or Making Decisions Difficulty Not on file 04/29/2023 Doing Errands Independently Difficulty Not on fi le 04/29/2023 Education Answer Date Recorded Help with school or training? Not on file Preferred Language Not on file 04/29/2023 Comments Unknown Sex and Gender Information Value Date Recorded Sex Assigned at Not on file Legal Sex Female 11:30 AM EDT Gender Identity Not on file Sexual Orientation Not on file Plan of Treatment Upcoming Encounters Date Type Department Care Team (Late st Contact Info) Description 06/16/2025 10:15 AM EST Appointment [facility] [address] [place] [address] Health Maintenance Due Date Last Done Comments ANNUAL PHYSICAL 1970 Annual Gynecologic Pelvic and Breast Exam 1970 HEPATITIS C SCREENING 1970 TDAP/TD VACCINES (1 - Tdap) 1989 MAMMOGRAM 2010 COLOGUARD 12/07/2015 COLON CANCER SCREENING 5 YEAR SIGMOIDOSCOPY 12/07/2015 COLONOSCOPY 12/07/2015 COLORECTAL CANCER SCREENING 12/07/2015 CT COLONOGRAPHY 12/07/2015 FECAL OCCULT BLOOD TEST 12/07/2015 FIT Testing (1 year) 12/07/2015 Pneumococcal Vaccine 50+ (1 of 1 - PCV) 2020 ZOSTER VACCINE (1 of 2) 2020 INFLUENZA VACCINE 02/19/2025 Insurance [employer]
== END 2025-05-31 23:59 | disposition home or self-care (01) ==
LOC: RAD 14:14
PROVIDERS: PCP Family Medicine; Visit Provider Nurse Practitioner
DX: E03.9 Hypothyroidism, unspecified (principal)
CPT/HCPCS: 76536

== ENCOUNTER 2025-06-24 15:12 | Outpatient (CLI) | payer BC, SELFPAY ==
[2025-06-24 15:43] LABS: Hematocrit 42.4 % (37.0-47.0); Hemoglobin 14.3 g/dL (12.2-16.2); Immature Granulocytes % 0.3 %; Mean Corpuscular HGB Conc 33.7 g/dL (31.8-35.4); Mean Corpuscular Hemoglobin 30.0 pg (27.0-31.2); Mean Corpuscular Volume 89.1 fl (81-99); Nucleated Red Blood Cells % 0 %; Platelet Count 347 K/mm3 (142-424); Red Blood Count 4.76 M/mm3 (4.20-5.40); Red Cell Distribution Width-SD 42.1 fL; White Blood Count 7.8 K/mm3 (4.8-10.8)
[2025-06-24 16:13] LABS: Alanine Aminotransferase 20 U/L (12-78); Albumin Level 4.4 g/dl (3.5-5.0); Albumin/Globulin Ratio 1.6 (1.1-1.8); Alkaline Phosphatase 52 U/L (38-126); Anion Gap 9.8 mEq/L (5-15); Aspartate Amino Transferase 27 U/L (14-36); Bilirubin,Total 0.5 mg/dl (0.2-1.3); Blood Urea Nitrogen 16 mg/dl (7-17); Calcium 9.6 mg/dl (8.4-10.2); Carbon Dioxide 27 mmol/L (22.0-30.0); Chloride 99 mmol/L (98-107); Cholesterol 144 mg/dl (140-200); Creatinine,Serum 0.60 mg/dl (0.52-1.04); Estimated Glomerular Filt Rate 104 ml/min (>60); GFR (African American) 126 ML/MIN (>60); Globulin 2.7 g/dL (1.3-3.2); Glucose 91 mg/dl (74-100); HDL Cholesterol 56 mg/dl (40-60); Potassium 3.8 mmoL/L (3.5-5.1); Sodium 132 mmol/L (136-145); Total Protein,Serum 7.1 g/dl (6.3-8.2); Triglycerides 98 mg/dl (30-150)
[2025-06-24 16:29] LABS: Free T4 (Free Thyroxine) 1.79 ng/dl (0.78-2.19)
[2025-06-24 16:43] LABS: Thyroid Stimulating Hormone 0.13 uIU/mL (0.465-4.68)
[2025-06-25 11:12] LABS: FSH 21.7 mIU/mL (.); LH 20.3 mIU/mL (.)
== END 2025-06-24 23:59 | disposition home or self-care (01) ==
LOC: LAB 15:13
PROVIDERS: Nurse Practitioner Obstetrics & Gynecology; PCP Family Medicine; Visit Provider Nurse Practitioner
DX: Z01.419 Encounter for gynecological examination (general) (routine) without abnormal findings (principal); E03.9 Hypothyroidism, unspecified
CPT/HCPCS: 36415; 80053; 80061; 83001; 83002; 84439; 84443; 85025